=== PATIENT | male | born 2000 | race Caucasian/White ===

== ENCOUNTER 2021-12-10 13:29 | Emergency (ER) | payer BC ==
--- NOTE | 2021-12-10 17:17 | EDPHYS ---
Physician Documentation [facility] Name: Dakota Burdick Age: 21 yrs Sex: Male : 2000 Arrival Date: 12/10/2021 Time: 13:32 Bed Waiting Private MD: ED Physician Krissy Huntley HPI: 12/10 17:15 This 21 yrs old Male presents to ER via Wheelchair with complaints of Knee Pain - Left. jr8 17:15 Onset: The symptoms/episode began/occurred acutely. The patient has not experienced jr8 similar symptoms in the past. The patient has not recently seen a physician. Patient stated that a large log fell on left knee. Pain to knee. Denies any other injury . Historical: - Allergies: 14:27 No Known Allergies; ll1 - PMHx: 14:27 None; ll1 - PSHx: 14:27 None; ll1 - Immunization history:: Client reports having NOT received the Covid vaccine. Last tetanus immunization: up to date Flu vaccine status is unknown. - Social history:: Smoking status: Patient denies any tobacco usage or history of. ROS: 17:15 Eyes: Negative for injury, pain, redness, and discharge, ENT: Negative for injury, jr8 pain, and discharge, Neck: Negative for injury, pain, and swelling, Cardiovascular: Negative for chest pain, palpitations, and edema, Respiratory: Negative for shortness of breath, cough, wheezing, and pleuritic chest pain, Abdomen/GI: Negative for abdominal pain, nausea, vomiting, diarrhea, and constipation, Back: Negative for injury and pain, Skin: Negative for injury, rash, and discoloration, Neuro: Negative for headache, weakness, numbness, tingling, and seizure. 17:15 MS/extremity: Positive for pain, tenderness, of the left leg. Exam: 17:15 Constitutional: This is a well developed, well nourished patient who is awake, alert, jr8 and in no acute distress. Cardiovascular: Regular rate and rhythm with a normal S1 and S2. No gallops, murmurs, or rubs. Normal PMI, no JVD. No pulse deficits. Respiratory: Lungs have equal breath sounds bilaterally, clear to auscultation and percussion. No rales, rhonchi or wheezes noted. No increased work of breathing, no retractions or nasal flaring. Abdomen/GI: Soft, non-tender, with normal bowel sounds. No distension or tympany. No guarding or rebound. No evidence of tenderness throughout. Back: No spinal tenderness. No costovertebral tenderness. Full range of motion. Skin: Warm, dry with normal turgor. Normal color with no rashes, no lesions, and no evidence of cellulitis. Neuro: Awake and alert, GCS 15, oriented to person, place, time, and situation. Cranial nerves II-XII grossly intact. Motor strength 5/5 in all extremities. Sensory grossly intact. Cerebellar exam normal. Normal gait. 17:15 Musculoskeletal/extremity: Extremities: grossly normal except: noted in the left leg: pain, tenderness, ROM: intact in all extremities, Circulation is intact in all extremities. Sensation intact. Vital Signs: 14:25 BP 135 / 74; Pulse 81; Resp 16; Temp 99.0; Pulse Ox 99% ; Weight 63.5 kg; Height 5 ft. ll1 9 in. (175.26 cm); Pain 4/10; 14:25 Body Mass Index 20.67 (63.50 kg, 175.26 cm) ll1 MDM: 17:15 Patient medically screened. jr8 17:15 Data reviewed: vital signs, nurses notes. Data interpreted: Pulse oximetry: on room air jr8 is 99 %. Interpretation: normal. Counseling: I had a detailed discussion with the patient and/or guardian regarding: the historical points, exam findings, and any diagnostic results supporting the discharge/admit diagnosis. Administered Medications: No medications were administered Disposition Summary: 12/10/21 17:17 Eloped Disposition: after being seen by provider jrCharley Reason: unknown jr8 Condition: Stable jr8 Signatures: Dispatcher [employer] EDMS Felice Cedeno PA PA jr8 German Mo RN RN ll1 Corrections: (The following items were deleted from the chart) 15:29 14:46 Knee Left 3 View+RAD.RAD.BRZ ordered. EDIL EDMS
--- NOTE | 2021-12-10 17:17 | ER ---
Nurse's Notes [facility] Name: Dakota Burdick Age: 21 yrs Sex: Male : 2000 Arrival Date: 12/10/2021 Time: 13:32 Bed Waiting [facility] MD: Diagnosis: Presentation: 12/10 14:25 Chief complaint: Patient states: Log fell onto L leg 5 days ago. Pain to anterior knee ll1 since. Abrasion noted to posterior knee area. Coronavirus screen: Vaccine status: Patient reports being unvaccinated. Client denies travel out of the [place] in the last 14 days. At this time, the client does not indicate any symptoms associated with coronavirus-19. Ebola Screen: Patient denies travel to an Ebola-affected area in the 21 days before illness onset. Initial Sepsis Screen: Does the patient meet any 2 criteria? No. Patient's initial sepsis screen is negative. Does the patient have a suspected source of infection? Yes: Bone or joint infection. Risk Assessment: Do you want to hurt yourself or someone else? Patient reports no desire to harm self or others. Onset of symptoms was December 05, 2021. 14:25 Method Of Arrival: Wheelchair ll1 14:25 Acuity: MADELINE 4 ll1 Triage Assessment: 14:27 General: Appears in no apparent distress. Behavior is calm, cooperative, appropriate ll1 for age. Pain: Complains of pain in L knee Quality of pain is described as aching. Musculoskeletal: Reports pain in L knee. Injury Description: Bruise. Historical: - Allergies: 14:27 No Known Allergies; ll1 - PMHx: 14:27 None; ll1 - PSHx: 14:27 None; ll1 - Immunization history:: Client reports having NOT received the Covid vaccine. Last tetanus immunization: up to date Flu vaccine status is unknown. - Social history:: Smoking status: Patient denies any tobacco usage or history of. Screenin:30 Abuse screen: Denies threats or abuse. Nutritional screening: No deficits noted. ll1 Tuberculosis screening: No symptoms or risk factors identified. Fall Risk Gait- Impaired (20 pts.). Total Vazquez Fall Scale indicates No Risk (0-24 pts). Vital Signs: 14:25 BP 135 / 74; Pulse 81; Resp 16; Temp 99.0; Pulse Ox 99% ; Weight 63.5 kg; Height 5 ft. ll1 9 in. (175.26 cm); Pain 4/10; 14:25 Body Mass Index 20.67 (63.50 kg, 175.26 cm) ll1 ED Course: 13:32 Patient arrived in ED. kz 14:27 Triage completed. ll1 14:27 Arm band placed on. ll1 15:27 John Nuñez PA is PHCP. cp 15:27 Krissy Huntley MD is Attending Physician. cp 15:30 No provider procedures requiring assistance completed. Patient did not have IV access ll1 during this emergency room visit. 17:15 Krissy Huntley MD is Attending Physician. jr8 17:20 Felice Cedeno PA is PHCP. jr8 Administered Medications: No medications were administered Outcome: 17:19 Eloped after seeing physician Time discovered patient gone: December 10, 2021 at 15:30 ll1 17:19 Condition: stable 17:19 Instructed on n/a. eloped after seeing PA. 17:20 Patient left the ED. ll1 Signatures: Felice Cedeno PA PA jrJohn Gallardo PA PA cp German Mo RN RN ll1 Rand Siddiqi
[2021-12-10 17:31] VITALS: BP 135/74; TEMP 99; O2SAT 99
== END 2021-12-10 17:20 | disposition left against medical advice (07) ==
LOC: ER 13:29
DX: M79.605 Pain in left leg (principal); W22.8XXA Striking against or struck by other objects, initial encounter
CPT/HCPCS: 99281